=== PATIENT | female | born 1955 | race Caucasian/White ===

== ENCOUNTER → 2017-07-21 | Outpatient (CLI) | payer OTHER ==
[~2017-07-21] MED LIST: BACTRIM DS 8001 TAB PO; CEPHALEXIN500 M1 PO; DOXYCYCLINE 10100 MG PO; PHENERGAN 25 TA25 MG PO; PRAVASTATIN SOD10 MG PO; PYRIDIUM200 M1 PO; ULTRAM 50MG TAB50 MG PO; VENTOLIN0.09 MG IH
== END ==
LOC: COL.RAD 09:55
DX: M48.02 Spinal stenosis, cervical region (principal); M43.8X2 Other specified deforming dorsopathies, cervical region; M85.88 Other specified disorders of bone density and structure, other site

== ENCOUNTER → 2017-07-23 | Outpatient (CLI) | payer OTHER, BC | LOC: COL.RAD 08:15 | DX: R94.02 Abnormal brain scan (principal); R51 Headache; M54.2 Cervicalgia; V89.2XXA Person injured in unspecified motor-vehicle accident, traffic, initial encounter | CPT/HCPCS: Q9967 ==

== ENCOUNTER → 2018-01-26 | Outpatient (CLI) | payer BC | LOC: COL.RAD 10:44 | DX: R94.02 Abnormal brain scan (principal) | CPT/HCPCS: Q9967 ==

== ENCOUNTER → 2018-07-09 | Outpatient (CLI) | payer BC | LOC: MC.RAD 10:45 | DX: Z12.31 Encounter for screening mammogram for malignant neoplasm of breast (principal) ==

== ENCOUNTER → 2019-07-26 | Outpatient (CLI) | payer BC | LOC: MC.RAD 05-04 11:15 | DX: Z12.31 Encounter for screening mammogram for malignant neoplasm of breast (principal) ==

== ENCOUNTER → 2020-07-26 | Outpatient (CLI) | payer BC | LOC: MC.RAD 11:30 | DX: Z12.31 Encounter for screening mammogram for malignant neoplasm of breast (principal); N63.10 Unspecified lump in the right breast, unspecified quadrant ==

== ENCOUNTER → 2020-08-02 | Outpatient (CLI) | payer BC | LOC: MC.RAD 11:00 | DX: N64.9 Disorder of breast, unspecified (principal) ==

== ENCOUNTER → 2020-08-28 | Outpatient (CLI) | payer BC | LOC: MC.RAD 09:58 | DX: N63.10 Unspecified lump in the right breast, unspecified quadrant (principal) ==

== ENCOUNTER → 2021-09-12 | Outpatient (CLI) | payer BC | LOC: MC.RAD 08-13 14:15 | DX: Z12.31 Encounter for screening mammogram for malignant neoplasm of breast (principal); N60.01 Solitary cyst of right breast ==

== ENCOUNTER 2021-11-25 20:57 | Emergency (ER) | payer MEDICARE, BC ==
[~2021-11-25] VITALS: Ht 167.6 cm; Wt 106.8 kg
[2021-11-25] MEDS ORDERED: NORCO 325 MG-51 TAB PO (21:39)
[2021-11-25 22:02] VITALS: BP 136/64; PULSE 78; TEMP 98.6
== END 2021-11-25 22:04 | disposition home or self-care (01) ==
LOC: COL.ER 20:57
DX: S52.122A Displaced fracture of head of left radius, initial encounter for closed fracture (principal); W18.39XA Other fall on same level, initial encounter

== ENCOUNTER 2023-02-28 05:30 | Emergency (ER) | payer MEDICARE, BC ==
[~2023-02-28] VITALS: Ht 167.6 cm; Wt 104.5 kg
[~2023-02-28 05:30] MED LIST changes: +NORCO 325 MG-51 TAB PO
[2023-02-28 05:35] VITALS: TEMP 97.5
[2023-02-28 06:07] LABS: BASO # 0.1 K/mm3 (0.0-0.2); BASO % 1.4 % (0.0-2.0); EOS # 0.1 K/mm3 (0.0-0.7); EOS % 1.1 % (0.0-4.0); GRAN # 4.7 K/mm3 (1.4-6.5); GRAN % 52.8 % (42.2-75.2); HEMATOCRIT 42.3 % (37.0-47.0); HEMOGLOBIN 14.2 g/dl (12.5-16.0); LYMPH # 3.1 K/mm3 (1.2-3.4); LYMPH % 35.1 % (20.0-51.0); MEAN CELL VOLUME 92 fl (80.0-100.0); MEAN CORPUSCULAR HEMOGLOBIN 31 pg (27-31); MEAN CORPUSCULAR HGB CONC 34 g/dl (33.0-37.0); MEAN PLATELET VOLUME 12.8 fl (7.4-10.4); MONO # 0.8 K/mm3 (0.1-0.6); MONO % 8.8 % (1.7-9.3); PLATELET COUNT 160 K/mm3 (130-400); RED BLOOD COUNT 4.62 M/mm3 (4.10-5.30); REDCELL DISTRIBUTION WIDTH-CV 14.4 % (11.5-14.5)
[2023-02-28 06:09] LABS: PROTHROMBIN TIME 10.8 SECONDS (9.7-12.8)
[2023-02-28 06:20] LABS: ALANINE AMINOTRANSFERASE 28 U/L (0-55); ALBUMIN 3.7 gm/dL (3.4-4.8); ALKALINE PHOSPHATASE 64 U/L (40-150); ANION GAP 12 mmol/L (7-16); AST,SGOT 20 U/L (5-34); BILIRUBIN,TOTAL 0.4 mg/dL (0.2-1.2); BLOOD UREA NITROGEN 12 mg/dL (10-20); CALCIUM 8.5 mg/dL (8.4-10.2); CARBON DIOXIDE 21 mmol/L (23-31); CHLORIDE 107 mmol/L (98-107); GLUCOSE 154 mg/dL (70-99); POTASSIUM 3.3 mmol/L (3.5-4.5); SODIUM 140 mmol/L (136-145)
[2023-02-28 06:40] LABS: TROPONIN-I < 0.010 ng/mL (0.00-0.033)
[2023-02-28 09:26] VITALS: BP 145/87; PULSE 78
== END 2023-02-28 09:28 | disposition home or self-care (01) ==
LOC: COL.ER 05:30
PROVIDERS: Emergency Medicine
DX: R07.9 Chest pain, unspecified (principal); K80.20 Calculus of gallbladder without cholecystitis without obstruction; I10 Essential (primary) hypertension
CPT/HCPCS: Q9967